=== PATIENT | female | born 2000 | race Caucasian/White ===

== ENCOUNTER 2020-08-27 23:36 | Inpatient (IN) | payer OTHER ==
[~2020-08-27] VITALS: Ht 161.3 cm; Wt 56.0 kg
[2020-08-27] MEDS ORDERED: SERT50TA29 PO (23:54)
[2020-08-28 16:33] VITALS: BP 115/67
[2020-08-28] MEDS: SERTRALINE HCL 50 MG TAB PO SCH (21:58)
[2020-08-29 06:58] VITALS: BP 104/59
--- NOTE | 2020-08-29 13:21 | MHHPE ---
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 Was admitted because of suicidal thoughts. CHIEF COMPLAINT: "I was overwhelmed with work, and I had suicidal thoughts." HISTORY OF PRESENT ILLNESS: Two days ago patient was overwhelmed with work. She had two panic attacks. Did not want to work. She went to her computer programming supervisor and told her that she wanted to quit the job, and the patient's computer programming supervisor inquired about her suicidal thoughts. She admitted to it, and she was brought to the hospital. Complains of sleep disturbances, low energy, poor appetite, hopelessness, helplessness. Though she had suicidal thoughts, she did not have any plans. Patient has a history of hypomanic episodes. The symptoms were she was feeling she was on the top of the world, she had racing thoughts, she was into risk-taking behaviors, like driving fast, oversexuality, and when she is hyper she goes on road trips for a long distance. Patient also has a history of panic attacks without agoraphobia. Her current stressors are work. She split with her boyfriend in May of this month. Her depression started from May; however, it worsened recently, a few weeks ago. PAST PSYCHIATRIC HISTORY: Denied any psychiatric hospitalizations in the past, but when she was 14 she wrote a suicide note, and she cut herself. DRUG AND ALCOHOL HISTORY: Patient uses cannabis every day, and she also drinks alcohol once a month. MEDICAL HISTORY: Denies medical problems. FAMILY HISTORY: Her father probably has bipolar disorder. She was raised by her father and stepmother. She has one brother and three sisters. 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 MENTAL STATUS EXAMINATION: Thin built, cooperative. Made good eye contact. Mood is depressed. Affect is constricted. Speech rate, rhythm, volume are good. Thought process: Linear, goal directed. Thought content: Currently denies any suicidal thoughts. Memory, immediate, remote, recent, is good. She is oriented to time, place, and person. Impulse control is adequate. VITAL SIGNS: Temperature 98.4, respiratory rate is 14, pulse is 52, blood pressure 104/59, pulse oximetry 99. CURRENT MEDICATIONS: Sertraline 50 mg once daily REVIEW OF SYSTEMS: CONSTITUTIONAL: Negative for night sweats, weight loss. Negative for epistaxis, headache, hearing loss. RESPIRATORY: No cough. No shortness of breath or wheezing. CARDIOVASCULAR: Negative for chest pain or dyspnea or palpitations. GASTROINTESTINAL: No abdominal pain. No change in bowel habits. GENITOURINARY: No dysuria. No trouble voiding. No hematuria. NEUROLOGIC: Negative for gait disturbances, numbness, tingling. DIAGNOSIS: Mood disorder, not otherwise specified, rule out bipolar 2 disorder. PLAN: 1. Admit patient to inpatient mental health unit (IM). 2. Patient will be followed by robot technician for medical needs. 3. Patient will be seen by physical therapy (PT), occupational therapy (OT), and social media designer. 4. Patient will be placed on suicide precautions. 5. Patient will participate in appropriate activities, groups, individual therapy. MEDICATIONS: Patient currently is on Zoloft. I will continue 50 mg at night and continue Lamictal 25 mg at night; titrate the dose upward. ESTIMATED LENGTH OF STAY: 4-5 days. TIME SPENT: 1 hour.
[2020-08-29 16:25] VITALS: BP 118/67
[2020-08-29] MEDS: ACETAMINOPHEN TAB 650MG DOSE (2X325MG) PO PRN (18:19)
--- NOTE | 2020-08-29 19:06 | HPEPDOC ---
General Date of Admission Aug 28, 2020 at 13:49 Date of Service: Aug 29, 2020 Chief Complaint The patient is a 19-year-old female admitted with a reason for visit of Unspecified Depressive Disorder. Source: Patient Exam Limitations: No limitations History of Present Illness Patient is 19 years female with past medical history of anxiety presented hospital with suicidal thoughts. Two days ago patient was overwhelmed with work. She had two panic attacks. Did not want to work. She went to her loss prevention supervisor and told her that she wanted to quit the job, and the patient's loss prevention supervisor inquired about her suicidal thoughts. During my interview patient denied fever, chills or nausea, vomiting, chest pain, palpitations diarrhea or dysuria Home Medications Scheduled Sertraline HCl (Sertraline HCl) 50 Mg Tablet, 50 MG PO QHS, (Reported) Allergies Coded Allergies: No Known Allergies (Unverified , 08/27/20) Past Medical History Medical History Anxiety Family History Father has bipolar disorder Social History * Smoker: current smoker Alcohol: Denies Drugs: marijuana A-FIB/CHADSVASC A-FIB History Current/History of A-Fib/PAF?: No Current PO Anticoag Therapy: No Review of Systems Constitutional: Denies: Chills, Fever Eyes: Denies: Pain ENT: Denies: Head Aches Pulmonary: Denies: Dyspnea Cardiovascular: Denies: Chest Pain Gastrointestinal: Denies: Nausea, Vomiting Genitourinary: Denies: Dysuria Hematologic: Denies: Bruising Endocrine: Denies: Polydipsia Musculoskeletal: Denies: Neck Pain Neurological: Denies: Weakness Psych: Reports: Anxiety; Denies: Mood Normal Physical Examination General Exam: Positive: Alert, Cooperative Eye Exam: Positive: PERRLA ENT Exam: Positive: Atraumatic Neck Exam: Positive: Supple; Negative: JVD Chest Exam: Positive: Clear to auscultation Heart Exam: Positive: Rate Normal Telemetry: Positive: No significant arrhythmia Abdomen Exam: Positive: Normal bowel sounds Extremity Exam: Negative: Clubbing, Cyanosis Skin Exam: Positive: Nl turgor and temperature Neuro Exam: Positive: Normal Gait Psych Exam: Positive: Oriented x 3 Vital Signs Vital Signs Date Time Temp Pulse Resp B/P (MAP) Pulse Ox O2 Delivery O2 Flow Rate FiO2 08/29/20 16:25 96.8 68 18 118/67 (84) 98 Room Air Assessment/Plan Patient is 19 years female with past medical history of anxiety presented hospital with suicidal thoughts. Two days ago patient was overwhelmed with work. She had two panic attacks. Did not want to work. She went to her loss prevention supervisor and told her that she wanted to quit the job, and the patient's loss prevention supervisor inquired about her suicidal thoughts. During my interview patient denied fever, chills or nausea, vomiting, chest pain, palpitations diarrhea or dysuria Problems (1) Suicidal ideation Status: Acute Problem Text: defer treatment to psych team Plan / VTE VTE Prophylaxis Ordered?: No VTE Exclusion Mechanical Proph: Low Risk for VTE SHANE FONSECA DO Aug 29, 2020 19:06
[2020-08-29] MEDS: traZODone 50 MG TAB PO PRN (20:40)
[2020-08-29] MEDS: SERTRALINE HCL 50 MG TAB PO SCH (20:40)
[2020-08-29] MEDS: lamoTRIgine 25MG TAB PO SCH (20:40)
[2020-08-30 06:09] VITALS: BP 105/65
[2020-08-30] MEDS: ACETAMINOPHEN TAB 650MG DOSE (2X325MG) PO PRN (09:01)
[2020-08-30 16:31] VITALS: BP 116/71
--- NOTE | 2020-08-30 17:59 | MHIPN ---
PROGRESS NOTE DATE: 08/30/2020 SUBJECTIVE: I am doing well, I am not depressed, only I had slight headache. 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 The patient was stressed out at work. She told her solder making supervisor that she would like to quit. When solder making supervisor inquired further, she expressed suicidal thoughts and she was brought to the hospital. This is her first psychiatric hospitalization. The patient uses cannabis every day. The patient currently is doing better. However, she has some mood swings. MENTAL STATUS EXAMINATION: Thin built, cooperative, made good eye contact. Mood is depressed. Affect is restricted. Speech, rate, rhythm, volume are good. Thought process linear, goal directed. Denied auditory hallucination. Denies suicidal or homicidal ideas. Memory immediate, remote, recent are good. She is oriented to time, place and person. VITAL SIGNS: Temperature 97.7, pulse is 50, respiratory is 16, blood pressure is 105/65, pox 99%. MEDICATIONS: Lamictal 25 mg at night, Zoloft 50 mg in the a.m. ASSESSMENT AND PLAN: The patient currently is doing better. Denies any side effects from the medications. Plan is to continue current medications. Continue individual group and Milieu therapy. Estimated length of stay 4 to 5 days. Time spent is 25 minutes.
[2020-08-30] MEDS: SERTRALINE HCL 50 MG TAB PO SCH (20:48)
[2020-08-30] MEDS: lamoTRIgine 25MG TAB PO SCH (20:48)
[2020-08-30] MEDS: traZODone 50 MG TAB PO PRN (22:44)
[2020-08-31 06:27] VITALS: BP 142/70
--- NOTE | 2020-08-31 12:22 | MHIPNPDOC ---
[facility] Progress Note Progress Note DATE OF SERVICE: 08/31/20 SUBJECTIVE: I am doing well, I am not depressed, only I had slight headache. 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 The patient was stressed out at work. She told her hematology supervisor that she would like to quit. When hematology supervisor inquired further, she expressed suicidal thoughts and she was brought to the hospital. This is her first psychiatric hospitalization. The patient uses cannabis every day. The patient currently is doing better. However, she has some mood swings. Still somewhat depressed MENTAL STATUS EXAMINATION: Thin built, cooperative, made good eye contact. Mood is depressed. Affect is restricted. Speech, rate, rhythm, volume are good. Thought process linear, goal directed. Denied auditory hallucination. Denies suicidal or homicidal ideas. Memory immediate, remote, recent are good. She is oriented to time, place and person. MEDICATIONS: Lamictal 25 mg at night, Zoloft 50 mg in the a.m. ASSESSMENT AND PLAN: The patient currently is doing better. Denies any side effects from the medications. Plan is to continue current medications. Continue individual group and Milieu therapy. Increase zoloft 75 mg AM and trazodone 100 mg HS Estimated length of stay 4 to 5 days. Time spent is 25 minutes. Vital Signs Vital Signs Date Time Temp Pulse Resp B/P (MAP) Pulse Ox O2 Delivery O2 Flow Rate FiO2 08/31/20 06:27 98.5 48 16 142/70 (94) 97 Room Air Current Medications Current Medications Medications (Trade) Dose Ordered Sig/Erum Route PRN Reason Start Time Stop Time Status Last Admin Dose Admin Acetaminophen (Tylenol Tab) 650 mg Q6HP PRN PO HEADACHE or DISCOMFORT 08/28/20 13:50 08/30/20 09:01 Home Med (Med Rec Complete!) ASDIRECTED XX 08/28/20 06:55 08/28/20 06:54 DC Lamotrigine (LaMICtal) 25 mg QHS PO 08/29/20 21:00 08/30/20 20:48 Sertraline HCl (Zoloft) 50 mg QHS PO 08/28/20 21:00 08/31/20 10:33 DC 08/30/20 20:48 Sertraline HCl (Zoloft) 75 mg QHS PO 08/31/20 21:00 Trazodone HCl (Desyrel) 50 mg QHSP PRN PO INSOMNIA 08/28/20 13:50 08/31/20 10:33 DC 08/30/20 22:44 Trazodone HCl (Desyrel) 100 mg QHSP PRN PO INSOMNIA 08/31/20 10:30 Allergies Coded Allergies: No Known Allergies (Unverified , 08/27/20) ESME WILKINS MD Aug 31, 2020 12:22
[2020-08-31 18:25] VITALS: BP 123/57
[2020-08-31] MEDS: lamoTRIgine 25MG TAB PO SCH (20:47)
[2020-08-31] MEDS: SERTRALINE HCL 25 MG TABLET PO SCH (20:47)
[2020-08-31] MEDS: traZODone 100 MG TAB PO PRN (21:20)
[2020-09-01 06:31] VITALS: BP 116/59
--- NOTE | 2020-09-01 14:20 | MHIPNPDOC ---
[facility] Progress Note Progress Note DATE OF SERVICE: 09/01/20 SUBJECTIVE: I am doing well, I am not depressed, only I had slight headache. 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 The patient was stressed out at work. She told her supervisor building maintenance that she would like to quit. When supervisor building maintenance inquired further, she expressed suicidal thoughts and she was brought to the hospital. This is her first psychiatric hospitalization. The patient uses cannabis every day. The patient currently is doing better. However, she has some mood swings. and doing better, brighter. MENTAL STATUS EXAMINATION: Thin built, cooperative, made good eye contact. Mood is depressed. Affect is restricted. Speech, rate, rhythm, volume are good. Thought process linear, goal directed. Denied auditory hallucination. Denies suicidal or homicidal ideas. Memory immediate, remote, recent are good. She is oriented to time, place and person. MEDICATIONS: Lamictal 25 mg at night, Zoloft 50 mg in the a.m. ASSESSMENT AND PLAN: The patient currently is doing better. Denies any side effects from the medications. Plan is to continue current medications. Continue individual group and Milieu therapy. Increase Zoloft 75 mg AM and trazodone 100 mg HS Increase Lamictal 25 mg bid Estimated length of stay 4 to 5 days. Time spent is 25 minutes. Vital Signs Vital Signs Date Time Temp Pulse Resp B/P (MAP) Pulse Ox O2 Delivery O2 Flow Rate FiO2 09/01/20 06:31 97.7 55 16 116/59 (78) 98 Room Air Current Medications Current Medications Medications (Trade) Dose Ordered Sig/Erum Route PRN Reason Start Time Stop Time Status Last Admin Dose Admin Acetaminophen (Tylenol Tab) 650 mg Q6HP PRN PO HEADACHE or DISCOMFORT 08/28/20 13:50 08/30/20 09:01 Home Med (Med Rec Complete!) ASDIRECTED XX 08/28/20 06:55 08/28/20 06:54 DC Lamotrigine (LaMICtal) 25 mg QHS PO 08/29/20 21:00 08/31/20 20:47 Sertraline HCl (Zoloft) 50 mg QHS PO 08/28/20 21:00 08/31/20 10:33 DC 08/30/20 20:48 Sertraline HCl (Zoloft) 75 mg QHS PO 08/31/20 21:00 08/31/20 20:47 Trazodone HCl (Desyrel) 50 mg QHSP PRN PO INSOMNIA 08/28/20 13:50 08/31/20 10:33 DC 08/30/20 22:44 Trazodone HCl (Desyrel) 100 mg QHSP PRN PO INSOMNIA 08/31/20 10:30 08/31/20 21:20 Allergies Coded Allergies: No Known Allergies (Unverified , 08/27/20) ESME WILKINS MD Sep 01, 2020 14:20
[2020-09-01 16:12] VITALS: BP 133/77
[2020-09-01] MEDS: lamoTRIgine 25MG TAB PO SCH (20:49)
[2020-09-01] MEDS: SERTRALINE HCL 25 MG TABLET PO SCH (20:49)
[2020-09-01] MEDS: traZODone 100 MG TAB PO PRN (20:49)
[2020-09-02 07:35] VITALS: BP 105/59
[2020-09-02 08:16] VITALS: BP 105/59
[2020-09-02] MEDS: lamoTRIgine 25MG TAB PO SCH ×2 (09:28→20:15)
[2020-09-02 16:07] VITALS: BP 118/65
[2020-09-02] MEDS: SERTRALINE HCL 25 MG TABLET PO SCH (20:15)
[2020-09-02] MEDS: ACETAMINOPHEN TAB 650MG DOSE (2X325MG) PO PRN (21:59)
[2020-09-02] MEDS: traZODone 100 MG TAB PO PRN (21:59)
[2020-09-03 06:00] VITALS: BP 102/51
[2020-09-03] MEDS: lamoTRIgine 25MG TAB PO SCH ×2 (08:24→20:19)
[2020-09-03 17:00] VITALS: BP 136/67
[2020-09-03] MEDS: SERTRALINE HCL 25 MG TABLET PO SCH (20:19)
[2020-09-04 06:18] VITALS: BP 139/53
[2020-09-04] MEDS: lamoTRIgine 25MG TAB PO SCH (08:28)
[2020-09-04] MEDS ORDERED: SERT25TA21 PO (10:20)
[2020-09-04] MEDS ORDERED: LAMI25TA PO (10:20)
--- NOTE | 2020-09-04 11:24 | MHDS ---
[facility] DISCHARGE SUMMARY DATE OF ADMISSION: 08/28/2020 DATE OF DISCHARGE: 09/04/2020 DIAGNOSIS: Mood disorder not otherwise specified, rule out bipolar 2 disorder. 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 She was stressed out at work. For details of HPI, past psychiatric history, substance abuse history, medical history, social history, please refer to the initial evaluation. COURSE IN THE HOSPITAL: The patient initially was depressed. Her affect was labile. Complained of decreased sleep, poor appetite. She was placed on Lamictal and Zoloft. Her medication was titrated upwards. She made gradual recovery. Her depression resolved. She started sleeping better. She attended groups. She attended activities. Denied any suicidal thoughts. Denied any side effect of the medications. MENTAL STATUS EXAMINATION: Neatly dressed, well-groomed, cooperative, made good eye contact. Speech rate, rhythm and volume are good. Thought process linear, goal directed. Thought content: Denied any suicidal and homicidal ideas. Denied any hallucinations, auditory or visual. Her insight and judgment are good. Her memory immediate, remote and recent are good. VITAL SIGNS: Temperature 98.4, respirations 16, pulse 65, blood pressure 139/53, pulse oximetry 96. PLAN: Plan is to send her home. She will be staying with her grandmother initially. She wants to quit her job and she will be followed up at [facility] [place]. DISCHARGE MEDICATIONS: 1. Lamictal 25 mg twice a day. 2. Zoloft 25 mg in the a.m. Time spent is less than 30 minutes.
== END 2020-09-04 11:07 | disposition home or self-care (01) | DRG 753 ==
LOC: M ED 23:36 → M ED INP 08-28 13:49 → M PSY 08-28 16:26
PROVIDERS: ADMIT Psychiatry & Neurology Psychiatry; ATTEND Psychiatry & Neurology Psychiatry
DX: F31.81 Bipolar II disorder (principal); R45.851 Suicidal ideations; Z63.5 Disruption of family by separation and divorce; F41.0 Panic disorder [episodic paroxysmal anxiety]; Z56.89 Other problems related to employment; F17.200 Nicotine dependence, unspecified, uncomplicated; Z79.899 Other long term (current) drug therapy